=== PATIENT | female | born 1995 | race African-American/Black ===

== ENCOUNTER 2018-11-07 02:37 | Emergency (ER) | payer OTHER, SELFPAY ==
[2018-11-07] MEDS ORDERED: Dexamethasone 10 MG/ML VIAL ONE (03:16)
== END 2018-11-07 03:43 | disposition home or self-care (01) ==
LOC: ERS 02:37
DX: J02.9 Acute pharyngitis, unspecified (principal); F17.210 Nicotine dependence, cigarettes, uncomplicated
CPT/HCPCS: 87081; 87430; 96372; J1100